=== PATIENT | female | born 1990 | race African-American/Black ===

== ENCOUNTER 2023-06-18 20:02 | Emergency (ER) | payer BC, SELFPAY ==
[2023-06-18 20:06] VITALS: BP 151/98
[2023-06-18 20:26] LABS: % Basophils 0.8 % (0-2); % Eosinophils 5.3 % (0-6); % Immature Granulocytes 0.3 % (0-0.5); % Lymphocytes 58.1 % (20.5-51.1); % Monocytes 6.9 % (1.7-9.3); % Neutrophils 28.6 % (42.2-75.2); Absolute Basophils 0.1 10^3/uL (0-0.2); Absolute Eosinophils 0.3 10^3/uL (0-0.7); Absolute Lymphocytes 3.6 10^3/uL (1.2-3.4); Absolute Monocytes 0.4 10^3/uL (0.1-0.6); Absolute Neutrophils 1.8 10^3/uL (1.4-6.5); Hematocrit 41.7 % (37.0-47.0); Hemoglobin 14.4 g/dL (12.0-16.0); Mean Corp Hgb Conc. 34.5 g/dL (33.0-37.0); Mean Corpuscular Hgb 28.3 pg (27.0-31.0); Mean Corpuscular Volume 82.1 fL (81.0-99.0); Mean Platelet Volume 9.9 fL (7.4-10.4); Nucleated Red Blood Cells % 0 %; Platelet Count 318 10^3/uL (130-400); Red Blood Cell Count 5.08 10^6/uL (4.20-5.40); Red Cell Dist. Width 13.1 % (11.5-14.5); White Blood Cell Count 6.3 10^3/uL (4.8-10.8)
[2023-06-18 20:36] LABS: HCG, Serum Qualitative Screen Negative
[2023-06-18 20:44] LABS: ALT (SGPT) 27 U/L (0-35); AST (SGOT) 28 U/L (14-36); Albumin 4.2 g/dl (3.5-5.0); Alkaline Phosphatase 64 U/L (38-126); Blood Urea Nitrogen 12 mg/dl (7-17); Calcium 9.1 mg/dl (8.4-10.2); Carbon Dioxide 26 mmol/L (22-30); Chloride 105 mmol/L (98-107); Glucose 146 mg/dl (70-99); Lipase 213 U/L (23-300); Sodium 137 mmol/L (135-145); Total Bilirubin 0.4 mg/dl (0.2-1.3); Total Protein 7.6 g/dl (6.3-8.2); eGFR > 60.00
--- NOTE | 2023-06-18 23:22 | ED.GENMED ---
History of Present Illness
<NO Miller - Last Filed: 06/19/23 00:12>
General
Chief Complaint: Abdominal Symptoms
Source: patient
Exam Limitations: none
Time Seen by Provider: 06/18/23 23:09
Nursing documentation reviewed up to this point in time: agreed with
Travel History
Have you had any contact with someone who has COVID-19?: No
Do you have any symptoms of coronavirus? Fever > 100 degrees, chills, cough, shortness of breath, sore throat, loss of taste or smell, muscle aches, or headache?: No
History of Present Illness
History of Present Illness:
patient is a 32 y/o female presenting after vomiting up blood earlier in the day. Patient described the vomit as 'bright red colored vomit.' Patient states she has been experiencing heart burn/indigestion for the last few days for which she has been
taking tums for. Patient states the tums have been helping until she vomited today. Patient states after the bout of vomit the indigestion was gone. Patient states this indigestion is not new and she usually stays away from known triggers. Patient
denies any previous episode similar to this. Patient denies D/C, CP, SOB, DOSS, fever, or abdominal pain. Patient denies previous history of known peptic ulcer, or gallstones. Patient admits to drinking two white claws earlier today but denies any
smoking. patient admits to have a sinus infection 1 week ago that she tool Zyrtec and alcseltzer for.
Past History
<NO Miller - Last Filed: 06/19/23 00:12>
Past History
ED Past Medical History: Psychiatric (Anxiety and depression, Bipolar) and Other (Migraines)
ED Past Surgical History: None
Social History
Tobacco: Non-smoker
Alcohol: Occasional
Personal: Single
Living: alone
Review of Systems
<NO Miller - Last Filed: 06/19/23 00:12>
Review of Systems
All Other Systems: Not applicable
Constitutional: Reports no symptoms
EENT: Reports no symptoms
Respiratory: Reports no symptoms
Cardiac: Reports no symptoms
ABD/GI: Reports nausea, vomiting and other (hematemesis , heartburn )
: Reports no symptoms
Musculoskeletal: Reports no symptoms
Skin: Reports no symptoms
Neurological: Reports no symptoms
Endocrine: Reports no symptoms
Hematologic/Lymphatic: Reports no symptoms
Psychiatric: Reports no symptoms
Phy Exam
<NO Miller - Last Filed: 06/19/23 00:12>
General Physical Exam
General Presentation: well appearing and no apparent distress
General Skin: warm and dry
General Habitus: normal
General Mental: alert
General Hydration: appears well hydrated
ENT Exam
ENT Exam: EOMI, pharynx normal, neck supple and normocephalic
Eye Exam
Eye Exam: PERRL, cornea clear and conjunctiva normal
Cardiovascular Exam
Cardiovascular Exam: regular rate/rhythm, no edema, no murmur and normal peripheral pulses
Pulmonary Exam
Pulmonary Exam: lungs clear, no respiratory distress, no rales, no crackles, no rhonchi, no stridor, no wheezing and no cough
Gastrointestinal Exam
Gastrointestinal Exam: normal bowel sounds and non tender
Neurological Exam
Neurological Exam: alert, oriented x3, no motor deficits and speech normal
Musculoskeletal Exam
Musculoskeletal Exam: full ROM and no edema
Skin Exam
Skin Exam: normal color, warm/dry, no rash and no petechia
Psychiatric Exam
Psychiatric Exam: normal mood/affect
Course
<NO Miller - Last Filed: 06/19/23 00:12>
Orders/Labs/Results
Orders:
Orders
06/18/23 20:11
Test Result ONCE
06/18/23 20:17
Complete Blood Count/With Diff Urgent
Comprehensive Metabolic Panel Urgent
HCG, Serum Qualitative Screen Urgent
Lipase Urgent
06/18/23 23:17
Electrocardiogram (*1) Urgent
Reason for Study: Abdominal Pain
06/18/23 23:49
Pantoprazole [Protonix] 40 mg PO NOW STA
06/18/23 23:50
Electrocardiogram (*1) Urgent
Reason for Study: Abdominal Pain
EKG- Treatment ONCE
06/18/23 23:54
Troponin I Urgent
Abnormal Lab Results
06/18/23
20:17
Absolute Lymphs (auto) 3.6 H 10^3/uL
(1.2-3.4)
Neutrophils % 28.6 L %
(42.2-75.2)
Lymphocytes % 58.1 H %
(20.5-51.1)
Glucose 146 H mg/dl
(70-99)
06/18/23 20:17
06/18/23 20:17
Vital Signs
Initial and Last Documented VS:
Initial Vital Signs
Temp Pulse Resp BP Pulse Ox
98.1 F 116 18 151/98 98
06/18/23 20:06 06/18/23 20:06 06/18/23 20:06 06/18/23 20:06 06/18/23 20:06
Last Documented Vital Signs
Temp Pulse Resp BP Pulse Ox
98.1 F 90 20 151/98 98
06/18/23 20:06 06/18/23 23:45 06/18/23 23:15 06/18/23 20:06 06/18/23 23:45
Lucaslt;Juan Alberto Norwood, DO - Last Filed: 06/19/23 00:47>
Orders/Labs/Results
Orders:
Orders
06/18/23 20:11
Test Result ONCE
06/18/23 20:17
Complete Blood Count/With Diff Urgent
Comprehensive Metabolic Panel Urgent
HCG, Serum Qualitative Screen Urgent
Lipase Urgent
06/18/23 23:17
Electrocardiogram (*1) Urgent
Reason for Study: Abdominal Pain
06/18/23 23:49
Pantoprazole [Protonix] 40 mg PO NOW STA
06/18/23 23:50
Electrocardiogram (*1) Urgent
Reason for Study: Abdominal Pain
EKG- Treatment ONCE
06/18/23 23:54
Troponin I Urgent
Abnormal Lab Results
06/18/23
20:17
Absolute Lymphs (auto) 3.6 H 10^3/uL
(1.2-3.4)
Neutrophils % 28.6 L %
(42.2-75.2)
Lymphocytes % 58.1 H %
(20.5-51.1)
Glucose 146 H mg/dl
(70-99)
06/18/23 20:17
06/18/23 20:17
Vital Signs
Initial and Last Documented VS:
Initial Vital Signs
Temp Pulse Resp BP Pulse Ox
98.1 F 116 18 151/98 98
06/18/23 20:06 06/18/23 20:06 06/18/23 20:06 06/18/23 20:06 06/18/23 20:06
Last Documented Vital Signs
Temp Pulse Resp BP Pulse Ox
98.1 F 90 20 151/98 98
06/18/23 20:06 06/18/23 23:45 06/18/23 23:15 06/18/23 20:06 06/18/23 23:45
<NO Miller - Last Filed: 06/19/23 00:12>
MDM/Problems Addressed
Differential Diagnosis Includes:
nestor dorado
PUD
GERD
MDM/Problems Addressed:
hematemesis
<NO Miller - Last Filed: 06/19/23 00:12>
*Critical Care Note
Total Time (30-74mins, 75-104mins- exclusive of procedures): Not Applicable
<Juan Alberto Norwood DO - Last Filed: 06/19/23 00:47>
*EKG
Interpreted by ED Provider?: Yes
EKG Intrepretation Date: 06/19/23
Interpretation: normal
Comparison EKG: no comparison EKG present
Heart Rate: 100
Rate: normal
Rhythm: sinus
[place]: normal axis
Interval: normal interval
QRS Pattern: normal QRS
Ischemia: no ischemia
ED Attending Note
<NO Miller - Last Filed: 06/19/23 00:12>
-
Portions of this chart may have been created with voice recognition software.� Occasional wrong word or��sound alike� substitutions may have occurred due to the inherent limitations of voice recognition software.
<Juan Alberto Norwood DO - Last Filed: 06/19/23 00:47>
ED Attending Note
Patient seen and examined by attending physician: Yes
I performed the substantive portion of visit, reviewed & personally made and approve the management plan that is documented in note by myself or CANDICE.: Yes
ED Attending Note:
This a pleasant 32-year-old female who presents after 1 episode of hematemesis. Patient states that for the last few days she has been having reflux. She reports that Tums has helped. Earlier today she was drinking 2 alcoholic seltzers. Just
prior to vomiting she was drinking cranberry soda. Patient denies any other vomitus. She states that after vomiting, all of her symptoms have resolved. Patient has had this indigestion for many years. She states she stays away from citric acid
and tomato sauce which are her known triggers. Patient denies any current symptoms at this time. Patient was seen in conjunction with the PA student. I have reviewed and agree with the history and treatment plan presented. On my independent
physical exam, patient is awake, alert, and oriented x3. Heart is regular rate and rhythm. Lungs are clear to auscultation bilaterally without wheezes rales or rhonchi present. Abdomen is soft and nontender nondistended no hepatosplenomegaly.
Plan is to check EKG and troponin. Will start her on Protonix.
Troponin is negative
Discharge Plan
Departure
Patient Disposition: Home (Routine Discharge)
Date of Disposition: 06/19/23
Time of Disposition: 00:44
Patient with high blood pressure during this ER visit?: Yes
Discharge Problem:
Acid reflux, Hematemesis
Instructions: Acid Reflux and GERD in Adults (DC), [place] Diet, Nausea and Vomiting, Adult (DC), BLOOD PRESSURE
Prescriptions:
New
pantoprazole [Protonix] 40 mg tablet,delayed release (DR/EC)
40 mg PO DAILY Qty: 20 0RF
No Action
hydroxyzine pamoate [Vistaril] 25 MG capsule
25 mg PO BID PRN (Reason: anxiety) Qty: 20 0RF
oxycodone-acetaminophen [Percocet] 5-325 mg Tablet
1 tab PO Q6HPRN PRN (Reason: pain) Qty: 14 0RF
diclofenac potassium 50 mg tablet
50 mg PO BID Qty: 20 0RF
amoxicillin-pot clavulanate 875-125 mg tablet
1 tab PO BID Qty: 20 0RF
albuterol sulfate [ProAir HFA] 90 mcg/actuation HFA aerosol inhaler
2 puff inhalation Q6H PRN (Reason: shortness of breath or wheezing) Qty: 6.7 0RF
Referrals:
Alicja Diaz MD [Family Provider] -
Activity Restrictions/Additional Instructions:
Your prescriptions were sent electronically to the pharmacy that you specified.
It was a pleasure meeting you and taking part in your care. We hope for your continued healing and wellness.
Please read discharge instructions in their entirety. However, they are for general education and may not describe your exact diagnosis at discharge. Information on your ER visit and medical conditions were discussed with you along with appropriate
follow up information...
If indicated, please take your medications as instructed and indicated on discharge paperwork.
Please schedule a follow up appointment as directed. Call to schedule an appointment
Please return to the emergency department with ANY change in, persisting, or worsening of symptoms. If any of your symptoms do not improve, or persist, or become more severe within 6-12 hours, please return to the emergency department for further
care.
Please return to the emergency department if you develop a headache, neck pain/stiffness, fever greater than 100.4F, chest pain, shortness of breath, persistent nausea, vomiting, slurred speech, difficulty walking, numbness/tingling, weakness, signs
of infection or any other symptoms that are worrisome to you.
If you have any questions or concerns please do not hesitate to call the Hospital at or E-mail me directly at [email or web address]
Interventions
Interventions:
*Risk Screen - Suicide Last Done: 06/18/23 20:06
*General Assessment Last Done: 06/18/23 20:06
*Neglect/Abuse Screening Last Done: 06/18/23 20:06
KJ-Uzlioa-Jfcfukmztp Assessment Last Done: 06/19/23 00:12
[2023-06-18 23:50] VITALS: BP 143/83
[2023-06-18] MEDS: PROTONIX 40 MG PO (23:52)
[2023-06-19 00:35] LABS: Troponin I < 0.012 ng/ml
== END 2023-06-19 01:15 | disposition home or self-care (01) ==
LOC: EMR 20:02
PROVIDERS: Emergency Medicine; EMERGENCY PHYSICIAN Student in an Organized Health Care Education/Training Program; FAMILY PHYSICIAN Family Medicine
DX: K92.0 Hematemesis (principal); K21.9 Gastro-esophageal reflux disease without esophagitis; F41.9 Anxiety disorder, unspecified; F31.9 Bipolar disorder, unspecified; G43.909 Migraine, unspecified, not intractable, without status migrainosus; F32.A Depression, unspecified
CPT/HCPCS: 99283; 80053; 83690; 84484; 84703; 85025; 93005

== ENCOUNTER 2024-02-02 13:37 | Emergency (ER) | payer BC, SELFPAY ==
[2024-02-02 13:49] VITALS: BP 172/98
[2024-02-02 14:22] VITALS: BP 165/110
--- NOTE | 2024-02-02 15:31 | ED.GENMED ---
History of Present Illness
General
Chief Complaint: Swelling
Time Seen by Provider: 02/02/24 14:14
History of Present Illness
History of Present Illness:
33-year-old female presents to the emergency department for evaluation of left jaw pain and facial swelling for the past 2 to 3 days. Does have a known dental fracture. Contacted her dentist was unable to get follow-up for more than 1 month. No
fevers or chills. No dysphagia.
Past History
Past History
ED Past Medical History: Psychiatric (Anxiety and depression, Bipolar) and Other (Migraines)
ED Past Surgical History: None
Social History
Tobacco: Non-smoker
Alcohol: Occasional
Personal: Single
Living: alone
Review of Systems
Review of Systems
Allergies reviewed?: Yes
All Other Systems: ROS reviewed and negative except as documented in HPI and ROS
Phy Exam
Physical Exam
Physical Exam:
GEN: Well appearing, NAD, WDWN
HEENT: Oral mucosa moist, no scleral icterus. Fluctuant dental abscess on the left mandible, no trismus
Cardiac: Regular rate
Lung: No respiratory distress, no tachypnea
MSK: No gross deformity or injuries
Skin: Good color, no pallor or jaundice, no rashes
Neuro: AO x3, moves all extremities freely
Psych: Calm, cooperative
Course
Vital Signs
Initial and Last Documented VS:
Initial Vital Signs
Temp Pulse Resp BP Pulse Ox
98.6 F 96 16 172/98 94
02/02/24 13:49 02/02/24 13:49 02/02/24 13:49 02/02/24 13:49 02/02/24 13:49
Last Documented Vital Signs
Temp Pulse Resp BP Pulse Ox
98.6 F 102 18 165/110 94
02/02/24 13:49 02/02/24 14:22 02/02/24 14:22 02/02/24 14:22 02/02/24 13:49
Procedures
Incision/Drainage/Joint Aspiration
Left lower dental abscess:
Anethesia: 1% Lidocaine with Epi
Type of procedure: incise
Nature of site: abscess
Description of abscess: less than 3cm
Loculations broken up: No
How much fluid was obtained?: scant amount
Fluid description: purulent
Treatment: left open for drainage
MDM/Problems Addressed
MDM/Problems Addressed:
Bedside incision and drainage performed, patient started on Augmentin, recommend close outpatient dental follow-up with possible
*Critical Care Note
Total Time (30-74mins, 75-104mins- exclusive of procedures): Not Applicable
ED Attending Note
-
Portions of this chart may have been created with voice recognition software.� Occasional wrong word or��sound alike� substitutions may have occurred due to the inherent limitations of voice recognition software.
Discharge Plan
Departure
Patient Disposition: Home (Routine Discharge)
Date of Disposition: 02/02/24
Time of Disposition: 15:31
Patient with high blood pressure during this ER visit?: No
Discharge Problem:
Abscess, dental
Instructions: Tooth Abscess (DC)
Prescriptions:
New
amoxicillin-pot clavulanate 875-125 mg tablet
1 tab PO BID 7 Days Qty: 14 0RF
oxycodone 5 mg tablet
5 mg PO Q8H PRN (Reason: Pain) Qty: 10 0RF
No Action
hydroxyzine pamoate [Vistaril] 25 MG capsule
25 mg PO BID PRN (Reason: anxiety) Qty: 20 0RF
oxycodone-acetaminophen [Percocet] 5-325 mg Tablet
1 tab PO Q6HPRN PRN (Reason: pain) Qty: 14 0RF
diclofenac potassium 50 mg tablet
50 mg PO BID Qty: 20 0RF
amoxicillin-pot clavulanate 875-125 mg tablet
1 tab PO BID Qty: 20 0RF
albuterol sulfate [ProAir HFA] 90 mcg/actuation HFA aerosol inhaler
2 puff inhalation Q6H PRN (Reason: shortness of breath or wheezing) Qty: 6.7 0RF
pantoprazole [Protonix] 40 mg tablet,delayed release (DR/EC)
40 mg PO DAILY Qty: 20 0RF
Referrals:
NONE,* [Family Provider] -
Activity Restrictions/Additional Instructions:
Follow up with your dentist as soon as possible
Interventions
Interventions:
*Risk Screen - Suicide Last Done: 02/02/24 13:49
*General Assessment Last Done: 02/02/24 13:49
*Neglect/Abuse Screening Last Done: 02/02/24 13:49
*ED COVID-19 Vaccine History Last Done: 02/02/24 14:03
ED- Cardiac Assessment Last Done: 02/02/24 14:04
ED- Pulmonary Assessment Last Done: 02/02/24 14:04
ED-Skin Assessment Last Done: 02/02/24 14:03
Discharge Date and Time
Print Language: KAZAKH
== END 2024-02-02 15:35 | disposition home or self-care (01) ==
LOC: EMR 13:37
PROVIDERS: EMERGENCY PHYSICIAN Emergency Medicine
DX: K04.7 Periapical abscess without sinus (principal)
CPT/HCPCS: 41800; 99282

== ENCOUNTER 2024-02-11 15:02 | Emergency (ER) | payer BC, SELFPAY ==
--- NOTE | 2024-02-11 16:04 | ED.MUSCINJ ---
HPI-Injury
General
Chief Complaint: Musculo-Skeletal Complaint
Source: patient
Exam Limitations: none
Time Seen by Provider: 02/11/24 15:56
History of Present Illness-Injury
Initial Injury comments:
33-year-old female presents complaining of right large toe pain starting 2 days ago. She fell on the steps and injured her toe. She complains of swelling. She is not diabetic. She has not taken anything for pain. No other complaints
Past History
Past History
ED Past Medical History: Psychiatric (Anxiety and depression, Bipolar) and Other (Migraines)
ED Past Surgical History: None
Social History
Tobacco: Non-smoker
Alcohol: Occasional
Personal: Single
Living: alone
Phy Exam
Physical Exam
Physical Exam:
General: Well-appearing female no acute respiratory distress
HEENT: Normocephalic atraumatic
Musculoskeletal exam: The right large toe is swollen ecchymotic and tender without deformity. The skin is not
Vascular: Brisk Apley refill right toes and 2+ dorsalis pedis pulse right foot
Neurologic: Good sensation right leg
Injury Course
Orders/Labs/Results
Orders:
Orders
02/11/24 15:17
CR Foot - Right Min 3 Views Urgent
Comment:
Reason For Exam: pain
MDM/Problems Addressed
Differential Diagnosis Includes:
Right toe pain after falling. Consider contusion versus fracture. Personally visualized x-rays of the right large toe which demonstrate a comminuted fracture of the proximal phalanx. Patient placed in a postoperative shoe. She will be vies
follow-up with orthopedics for further evaluation
*Critical Care Note
Total Time (30-74mins, 75-104mins- exclusive of procedures): Not Applicable
ED Attending Note
-
Portions of this chart may have been created with voice recognition software.� Occasional wrong word or��sound alike� substitutions may have occurred due to the inherent limitations of voice recognition software.
Discharge Plan
Departure
Patient Disposition: Home (Routine Discharge)
Date of Disposition: 02/11/24
Time of Disposition: 16:08
Patient with high blood pressure during this ER visit?: No
Discharge Problem:
Fracture of toe
Instructions: Muscle and Bone Pain (DC)
Prescriptions:
No Action
hydroxyzine pamoate [Vistaril] 25 MG capsule
25 mg PO BID PRN (Reason: anxiety) Qty: 20 0RF
oxycodone-acetaminophen [Percocet] 5-325 mg Tablet
1 tab PO Q6HPRN PRN (Reason: pain) Qty: 14 0RF
diclofenac potassium 50 mg tablet
50 mg PO BID Qty: 20 0RF
amoxicillin-pot clavulanate 875-125 mg tablet
1 tab PO BID Qty: 20 0RF
albuterol sulfate [ProAir HFA] 90 mcg/actuation HFA aerosol inhaler
2 puff inhalation Q6H PRN (Reason: shortness of breath or wheezing) Qty: 6.7 0RF
pantoprazole [Protonix] 40 mg tablet,delayed release (DR/EC)
40 mg PO DAILY Qty: 20 0RF
amoxicillin-pot clavulanate 875-125 mg tablet
1 tab PO BID 7 Days Qty: 14 0RF
oxycodone 5 mg tablet
5 mg PO Q8H PRN (Reason: Pain) Qty: 10 0RF
Referrals:
Yovany Henry MD [Active] -
Activity Restrictions/Additional Instructions:
Elevate for swelling. Use supportive shoe when ambulating. Use Tylenol or ibuprofen for pain. Follow-up with orthopedics for further evaluation
Interventions
Interventions:
*Risk Screen - Suicide Last Done: 02/11/24 15:14
*General Assessment Last Done: 02/11/24 15:14
*Neglect/Abuse Screening Last Done: 02/11/24 15:14
*ED COVID-19 Vaccine History Last Done: 02/11/24 15:14
ED-Musculoskeletal Assessment Last Done: 02/11/24 15:45
Discharge Date and Time
Print Language: PASHTO
[2024-02-11 16:24] VITALS: BP 140/101
== END 2024-02-11 16:25 | disposition home or self-care (01) ==
LOC: EMR 15:02
PROVIDERS: EMERGENCY PHYSICIAN Emergency Medicine
DX: S92.411A Displaced fracture of proximal phalanx of right great toe, initial encounter for closed fracture (principal); W10.9XXA Fall (on) (from) unspecified stairs and steps, initial encounter
CPT/HCPCS: 99283; 73630

== ENCOUNTER 2024-06-06 05:32 | Emergency (ER) | payer SELFPAY ==
[2024-06-06 05:37] VITALS: BP 200/121
[2024-06-06 05:52] VITALS: BP 164/104
[2024-06-06 06:00] VITALS: BP 181/138
--- NOTE | 2024-06-06 06:26 | ED.GENMED ---
History of Present Illness
General
Chief Complaint: Chest Pain
Source: patient
Exam Limitations: none
Time Seen by Provider: 06/06/24 06:18
History of Present Illness
History of Present Illness:
See MDM
Past History
Past History
ED Past Medical History: Psychiatric (Anxiety and depression, Bipolar) and Other (Migraines)
ED Past Surgical History: None
Social History
Tobacco: Non-smoker
Alcohol: Occasional
Personal: Single
Living: alone
Phy Exam
Physical Exam
Physical Exam:
See MDM
Scores
Heart Score for Chest Pain Patients
STEMI patient?: Not applicable
Course
Orders/Labs/Results
Orders:
Orders
06/06/24 05:35
EKG [Electrocardiogram (*1)] Urgent
Reason for Study: Chest Pain
06/06/24 05:36
EKG- Treatment ONCE
06/06/24 07:14
Complete Blood Count/With Diff Routine
Comprehensive Metabolic Panel Urgent
Abnormal Lab Results
06/06/24
07:14
MPV 11.0 H fL
(7.4-10.4)
Neutrophils % 36.8 L %
(42.2-75.2)
Glucose 275 H mg/dl
(70-99)
06/06/24 07:14
06/06/24 07:14
Vital Signs
Initial and Last Documented VS:
Initial Vital Signs
Temp Pulse Resp BP Pulse Ox
98.3 F 100 20 200/121 98
06/06/24 05:37 06/06/24 05:37 06/06/24 05:37 06/06/24 05:37 06/06/24 05:37
Last Documented Vital Signs
Temp Pulse Resp BP Pulse Ox
98.3 F 86 19 181/138 98
06/06/24 05:37 06/06/24 07:30 06/06/24 07:30 06/06/24 06:00 06/06/24 07:30
MDM/Problems Addressed
Differential Diagnosis Includes:
HPI and MDM Narrative:
33-year-old female presenting for evaluation of sudden onset of chest and flank pain. Patient states it woke her up from sleep. She localizes the pain to her left lateral chest and flank. Symptoms were nonexertional. She denies any fevers or
urinary symptoms. On arrival to the emergency department, all symptoms resolved. Screening EKG was performed showing no ischemic changes. Patient found to be hypertensive in the emergency department but she denies prior history of high blood
pressure. She claims that this could be related to anxiety. Regardless, discussed having this followed up with PCP. Patient took herself off of her Lamictal and Paxil recently. Discussed having this evaluated by her prescribing physician
Physical exam
General: Well appearing and non-toxic
HEENT: protecting airway
Neck: appears supple
CV: No evidence of cyanosis. Regular rate and rhythm
Resp: No accessory muscle use. Lungs clear
Abd: Non-distended. No abdominal or flank pain
Extremities: No deformities
Neuro: alert
Psych: Normal affect
Skin: Intact
Problems Addressed including Acute and Chronic Conditions affecting care:
1. Sudden onset of chest and flank pain
Acuity: acute
Prognosis: stable
Details: Given resolution, doubt cardiac pathology. Screening EKG within normal limits. Will obtain basic blood work
2. Hypertension
Acuity: acute
Prognosis: stable
Details: Discussed having this reassessed by PCP. Will obtain basic blood work looking for any evidence of endorgan damage
3. Hyperglycemia
Acuity: acute
Prognosis: stable
Details: Will start metformin
Updates
Patient remains well-appearing and nontoxic on reassessment we discussed her elevated blood sugar. I am concerned she has undiagnosed diabetes. Will start metformin. She states she does not have insurance and will refer to the [facility]
Differential Diagnosis (but not limited to): Musculoskeletal pain, kidney stone
Testing considered: Urinalysis
Drug therapy (if applicable): OTC meds, please see d/c instruction regarding Rx drugs
Amount and/or Complexity of Data Reviewed
Clinical info obtained from: Patient
External data reviewed: N/A
Labs I independently reviewed (but not limited to): Hyperglycemia
Radiology: N/A
Pulse Ox: not hypoxic
EKG independently reviewed: Sinus rhythm, normal axis, no STEMI
Sprinkling System Installer: N/A
Critical Care: N/A
Risk of Complication:
Social Determinants of health: Good social support
Discussed with other providers: N/A
Escalation of Care includes Admit/Obs: After being observed in the Emergency Department, pt stable for discharge.
Occasional wrong word or 'sound a like' substitutions may have occurred due to the inherent limitations of voice recognition software. Read the chart carefully and recognize, using context, where substitutions have occurred.
*Critical Care Note
Total Time (30-74mins, 75-104mins- exclusive of procedures): Not Applicable
ED Attending Note
-
Portions of this chart may have been created with voice recognition software.� Occasional wrong word or��sound alike� substitutions may have occurred due to the inherent limitations of voice recognition software.
Discharge Plan
Departure
Patient Disposition: Home (Routine Discharge)
Date of Disposition: 06/06/24
Time of Disposition: 08:01
Patient with high blood pressure during this ER visit?: Yes
Discharge Problem:
Hyperglycemia
Instructions: High blood sugar in adults - ED discharge instructions, BLOOD PRESSURE
Prescriptions:
New
metformin 500 mg tablet
500 mg PO BID Qty: 60 0RF
No Action
hydroxyzine pamoate [Vistaril] 25 MG capsule
25 mg PO BID PRN (Reason: anxiety) Qty: 20 0RF
oxycodone-acetaminophen [Percocet] 5-325 mg Tablet
1 tab PO Q6HPRN PRN (Reason: pain) Qty: 14 0RF
diclofenac potassium 50 mg tablet
50 mg PO BID Qty: 20 0RF
amoxicillin-pot clavulanate 875-125 mg tablet
1 tab PO BID Qty: 20 0RF
albuterol sulfate [ProAir HFA] 90 mcg/actuation HFA aerosol inhaler
2 puff inhalation Q6H PRN (Reason: shortness of breath or wheezing) Qty: 6.7 0RF
pantoprazole [Protonix] 40 mg tablet,delayed release (DR/EC)
40 mg PO DAILY Qty: 20 0RF
amoxicillin-pot clavulanate 875-125 mg tablet
1 tab PO BID 7 Days Qty: 14 0RF
oxycodone 5 mg tablet
5 mg PO Q8H PRN (Reason: Pain) Qty: 10 0RF
Referrals:
[facility] [Outside]
UNKNOWN - PT DOES,NOT KNOW [Family Provider] -
Activity Restrictions/Additional Instructions:
Please return for any worsening symptoms.
You may return at any time if you have further concerns.
Please follow up with clinic at the first available appointment, preferably this week. You need to have your elevated blood sugar and elevated blood pressure reevaluated.
Thank you for choosing [facility].
Interventions
Interventions:
*Risk Screen - Suicide Last Done: 06/06/24 05:37
*General Assessment Last Done: 06/06/24 07:04
*Neglect/Abuse Screening Last Done: 06/06/24 07:04
*ED- Fall Risk Assessment Last Done: 06/06/24 07:04
*ED COVID-19 Vaccine History Last Done: 06/06/24 07:04
ED- Cardiac Assessment Last Done: 06/06/24 07:06
Discharge Date and Time
Print Language: [id number]
[2024-06-06 07:03] VITALS: BMI 51.8
[2024-06-06 07:38] LABS: % Basophils 0.9 % (0-2); % Immature Granulocytes 0.3 % (0-0.5); % Lymphocytes 47.8 % (20.5-51.1); % Monocytes 9.2 % (1.7-9.3); % Neutrophils 36.8 % (42.2-75.2); Absolute Basophils 0.1 10^3/uL (0-0.2); Absolute Eosinophils 0.3 10^3/uL (0-0.7); Absolute Lymphocytes 3.2 10^3/uL (1.2-3.4); Absolute Monocytes 0.6 10^3/uL (0.1-0.6); Absolute Neutrophils 2.4 10^3/uL (1.4-6.5); Hematocrit 42.8 % (37.0-47.0); Hemoglobin 14.2 g/dL (12.0-16.0); Mean Corp Hgb Conc. 33.2 g/dL (33.0-37.0); Mean Corpuscular Hgb 28.4 pg (27.0-31.0); Mean Corpuscular Volume 85.6 fL (81.0-99.0); Nucleated Red Blood Cells % 0 %; Platelet Count 242 10^3/uL (130-400); Red Cell Dist. Width 13.6 % (11.5-14.5); White Blood Cell Count 6.6 10^3/uL (4.8-10.8)
[2024-06-06 07:41] VITALS: BP 161/117
[2024-06-06 07:49] LABS: ALT (SGPT) 34 U/L (0-35); AST (SGOT) 30 U/L (14-36); Albumin 3.9 g/dl (3.5-5.0); Alkaline Phosphatase 79 U/L (38-126); Blood Urea Nitrogen 9 mg/dl (7-17); Calcium 9.1 mg/dl (8.4-10.2); Carbon Dioxide 25 mmol/L (22-30); Chloride 102 mmol/L (98-107); Estimated Creatinine Clearance > 125 ml/min; Glucose 275 mg/dl (70-99); Potassium 4.1 mmol/L (3.5-5.1); Sodium 136 mmol/L (135-145); Total Bilirubin 0.5 mg/dl (0.2-1.3); Total Protein 6.9 g/dl (6.3-8.2); eGFR > 60.00
== END 2024-06-06 08:10 | disposition home or self-care (01) ==
LOC: EMR 05:32
PROVIDERS: EMERGENCY PHYSICIAN Student in an Organized Health Care Education/Training Program
DX: R73.9 Hyperglycemia, unspecified (principal); F41.9 Anxiety disorder, unspecified; F31.9 Bipolar disorder, unspecified
CPT/HCPCS: 99283; 80053; 85025; 93005